=== PATIENT | male | born 1955 | race Hispanic/Latino ===

== ENCOUNTER 2020-07-31 11:17 | Emergency (ER) | payer OTHER ==
[2020-07-31 12:16] LABS: Basophils % 0.6 % (0-1.3); Hematocrit 49.5 % (39.6-49.0); Lymphocytes % 7.2 % (15.3-44.8); MPV 8.9 fL (7.6-11.3); RBC Red Blood Cell Count 5.89 M/uL (4.33-5.43)
[2020-07-31 12:17] LABS: Protime INR 1.1
[2020-07-31] MEDS ORDERED: NA CHLORIDE 0.9% 1,000 ML ONE ×2 (12:22→16:16)
[2020-07-31] MEDS ORDERED: ONDANSETRON 4 MG/2 ML VIAL ONE ×3 (12:22→20:40)
[2020-07-31] MEDS ORDERED: FAMOTIDINE 20 MG/2 ML VIAL IV ONE (12:22)
[2020-07-31] MEDS ORDERED: MORPHINE 2 MG/ML SYR ONE (12:22)
[2020-07-31 12:37] LABS: Sodium Level 138 mmol/L (136-145)
[2020-07-31 12:38] LABS: ALT/SGPT 37 U/L (12-78); AST/SGOT 26 U/L (15-37); Alkaline Phosphatase 113 U/L (45-117); BUN Blood Urea Nitrogen 19 mg/dL (7-18); Bicarbonate 26 mmol/L (21-32); Bilirubin Direct 0.3 mg/dL (0-0.2); Bilirubin Total 0.9 mg/dL (0.2-1.0); Glucose Level 128 mg/dL (74-106); Lipase 81 U/L (73-393); Magnesium 2.6 mg/dL (1.8-2.4); NT PRO-BNP 97 pg/mL (<125); Protein, Total 8.6 g/dL (6.4-8.2); Troponin (Emerg Dept Use Only) < 0.02 ng/mL (0.0-0.045)
--- NOTE | 2020-07-31 12:40 | RAD REPORT ---
EXAM DESCRIPTION: RAD - Chest Single View - 07/31/2020 12:15 pm CLINICAL HISTORY: ABDOMINAL DISTENTION COMPARISON: None TECHNIQUE: AP portable chest image was obtained 07/31/2020 12:15 pm . FINDINGS: No mass or infiltrate the lung parenchyma. No failure or volume overload. Right-sided Port -A-Cath is in place in good position. Heart and vasculature are normal. No measurable pleural effusio n and no pneumothorax. No acute bony abnormality seen. No acute aortic findings suspected. IMPRESSION: No acute cardiopulmonary process.
[2020-07-31 13:05] LABS: Blood Morphology Comment NOT SEEN (NOT SEEN); Platelet Estimate ADEQ
--- NOTE | 2020-07-31 13:55 | RAD REPORT ---
EXAM DESCRIPTION: CT - Abdomen Pelvis W Contrast - 07/31/2020 1:23 pm CLINICAL HISTORY: Abd pain;Abdominal distention, history of colon cancer COMPARISON: No comparisons TECHNIQUE: Biphasic, helical CT imaging of the abdomen and pelvis was performed following 100 ml non -ionic IV contrast. Oral contrast was given. All CT scans are performed using dose optimization technique as appropriate and may include automated exposure control or mA/KV adjustment according to patient size. FINDINGS: No suspicious findings in the lung bases. The liver, spleen, and pancreas show no suspicious findings. Gallbladder is absent. No abnormal bilia ry tree dilatation. Symmetric renal function is seen with no hydronephrosis or suspicious renal mass. No pyelonephritis o r acute parenchymal process. No bladder abnormalities. No adrenal abnormalities. No gastric wall thickening or mass. Oral CT contrast has reached the proximal jejunum. There is signi ficant dilatation of the small bowel from the ligament of Treitz to the small bowel-colon anastomosis . The patient is status post right hemicolectomy. A stricture is present at the anastomosis. The nicole ruben of the colon shows a prominent sigmoid and descending colon diverticulosis but no diverticuliti s. Adjacent to the colon-small bowel anastomosis there is a 4 centimeter lobulated cystic mass. Inferior to the mass there is a lobulated 7 x 6 centimeter cystic or low-density mass partially encircling th e mesenteric vasculature. Several small lymph nodes are present in this region. In the left lower pel vis there is a 5.5 centimeter mass showing similar imaging characteristics. No omental thickening see n. No free air, free fluid or inflammatory stranding. No suspicious bony findings. IMPRESSION: Significant small bowel obstruction is present. Small bowel is significantly dilated fro m the ligament of Treitz to the small bowel colon anastomosis where there is a tight stricture identi fiable. The patient is status post right hemicolectomy for carcinoma. Multiple 4-7 centimeter size lobulated cystic or low-density masses are present in the mesentery as d etailed. Findings are concerning for intraperitoneal recurrence of malignancy. Non colon malignant pr ocess is possible along with possible benign mesenteric cystic masses. No comparison available. There is no free air, spill of intraluminal content or other immediate surgical emergent process.
--- NOTE | 2020-07-31 14:30 | ER ---
Nurse's Notes [facility] Name: Lucas Martinez Age: 65 yrs Sex: Male : 1955 Arrival Date: 07/31/2020 Time: 11:17 Bed 15 Private MD: Diagnosis: Other intestinal obstruction-Small Bowel Obstruction;Elevated white blood cell count;Vomiting Presentation: 07/31 11:34 Chief complaint: EMS states: Patient c/o N/V/Diarrhea X 3days. Coronavirus screen: ld1 Client denies travel out of the [place] in the last 14 days. At this time, the client does not indicate any symptoms associated with coronavirus-19. Ebola Screen: No symptoms or risks identified at this time. Initial Sepsis Screen: Does the patient meet any 2 criteria? No. Patient's initial sepsis screen is negative. Does the patient have a suspected source of infection? No. Patient's initial sepsis screen is negative. Risk Assessment: Do you want to hurt yourself or someone else? Patient reports no desire to harm self or others. Onset of symptoms was July 28, 2020. Care prior to arrival: Medication(s) given: zofran 8 mg, Fentanyl 75 mcg. 11:34 Method Of Arrival: EMS: [facility] ld1 11:34 Acuity: SHERRY 3 ld1 Triage Assessment: 11:41 General: Appears in no apparent distress. comfortable, Behavior is calm, cooperative, ld1 appropriate for age. Pain: Denies pain. EENT: No signs and/or symptoms were reported regarding the EENT system. Neuro: Level of Consciousness is awake, alert, obeys commands, Oriented to person, place, time, situation, Appropriate for age. Cardiovascular: Capillary refill < 3 seconds Patient's skin is warm and dry. Respiratory: Airway is patent Respiratory effort is even, unlabored, Respiratory pattern is regular, symmetrical. GI: Abdomen is flat, non-distended. : No signs and/or symptoms were reported regarding the genitourinary system. Derm: No signs and/or symptoms reported regarding the dermatologic system. Musculoskeletal: No signs and/or symptoms reported regarding the musculoskeletal system. Historical: - Allergies: 11:40 PENICILLINS; ld1 - Home Meds: 11:40 duloxetine 60 mg oral cpDR 1 cap once daily [Active]; morphine 60 mg Oral CM24 2 caps ld1 once daily [Active]; promethazine 25 mg Oral tab [Active]; docusate sodium 100 mg Oral tab 1 tab 2 times per day [Active]; lisinopril 10 mg Oral tab 1 tab once daily [Active]; loratadine 10 mg oral tab [Active]; omeprazole 20 mg Oral cpDR 1 cap once daily [Active]; - PMHx: 17:35 Hypertension; colon cancer; aa5 - Immunization history:: Adult Immunizations up to date. - Social history:: Smoking status: unknown Patient/guardian denies using. - Family history:: not pertinent. Screenin:59 Abuse screen: Denies threats or abuse. Nutritional screening: No deficits noted. ap3 Tuberculosis screening: No symptoms or risk factors identified. Fall Risk None identified. Assessment: 11:45 Reassessment: Received report from KARLIE Richard. Patient is in bed, has handcuffs on and ap3 has officer at the bedside. Bed is locked in lowest position, side rails are up X's 2. Call light is within reach. 13:01 Reassessment: Patient and/or family updated on plan of care and expected duration. Pain ap3 level reassessed. Patient is alert, oriented x 3, equal unlabored respirations, skin warm/dry/pink. 14:30 General: NG tube inserted. Patient tolerated well. . ap3 17:15 General: bedside commode provided.. ap3 18:25 Reassessment: Shift change occurring for bedside officers. ap3 20:16 Reassessment: Received care of pt at this time. Pt informed awaiting transport. Denies ad5 questions/concerns. Pt reports improvement in s/s, states abd pain 3/10 at this time, nausea has resolved. Pt with NGT to R nare, yellow contents noted to tube, remains on intermittent suction per orders. Pt with PD at bedside. VSS at this time. Resp with ease. Skin pwd. NAD noted, will continue to monitor. 20:45 Reassessment: [facility] at bedside for transfer of pt to [facility]. Pt is A\T\O x 4, resp unlabored, NG tube in place and capped for transport, IV site intact with no erythema or edema noted. Vital Signs: 11:34 BP 147 / 104; Pulse 77; Resp 18; Temp 99.1(O); Pulse Ox 100% on R/A; Pain 5/10; ld1 12:00 BP 163 / 114; Pulse 96; Resp 19; Pulse Ox 98% ; Pain 8/10; ap3 12:59 BP 130 / 92; Pulse 95; Pulse Ox 96% ; Pain 6/10; ap3 14:00 BP 142 / 99; Pulse 94; Pulse Ox 100% ; ap3 18:00 BP 147 / 97; Pulse 89; Pulse Ox 98% ; ap3 19:30 BP 138 / 79; Pulse 76; Resp 17; Pulse Ox 98% on R/A; ad5 20:47 BP 144 / 74; Pulse 72; Resp 18; Pulse Ox 97% on R/A; bb 20:49 Temp 98.2; bb ED Course: 11:17 Patient arrived in ED. am2 11:18 Kenji Mcleod MD is Attending Physician. [facility] 11:19 Hilary Baumann, KARLIE is Primary Nurse. ld1 11:30 Maintain EMS IV. Dressing intact. Good blood return noted. Site clean \T\ dry. Gauge \T\ ap 3 site: 20g left AC. 11:37 Triage completed. ld1 11:41 Arm band placed on right wrist. ld1 12:15 XRAY Chest (1 view) In Process Unspecified. EDMS 12:59 Patient has correct armband on for positive identification. Placed in gown. Bed in low ap3 position. Call light in reach. Side rails up X2. 13:23 CT Abd/Pelvis - PO and IV Contrast In Process Unspecified. EDMS 14:14 NGT: inserted 18 Fr. via right nare. to intermittent suction. Returned gastric ap3 contents. Patient tolerated well. 16:27 initiated transfer to [facility] managed care. bd 18:01 pt accepted in transfer by dr mancilla,admin approval given by anthony at [facility]. bd 18:41 Warm blanket given. ap3 20:50 No provider procedures requiring assistance completed. Patient transferred, IV remains bb in place. Administered Medications: 12:13 Drug: Pepcid (famotidine) 20 mg Route: IVP; Site: left antecubital; ap3 18:32 Follow up: Response: No adverse reaction ap3 12:13 Drug: Zofran (Ondansetron) 4 mg Route: IVP; Site: left antecubital; ap3 18:32 Follow up: Response: No adverse reaction; Nausea is decreased ap3 12:13 Drug: morphine 2 mg Route: IVP; Site: right antecubital; ap3 18:32 Follow up: Response: No adverse reaction; Pain is decreased ap3 12:14 Drug: NS 0.9% 1000 ml Route: IV; Rate: 125 ml/hr; Site: left antecubital; ap3 18:32 Follow up: Response: No adverse reaction; IV Status: Completed infusion ap3 15:00 Drug: Cipro (ciprofloxacin) 400 mg Volume: 200 ml; Route: IVPB; Infused Over: 60 mins; ap3 Site: left antecubital; 16:06 Follow up: Response: No adverse reaction; IV Status: Completed infusion ap3 18:31 Follow up: Response: No adverse reaction; IV Status: Completed infusion ap3 20:16 Follow up: IV Status: Completed infusion; IV Intake: 200ml ad5 15:00 Drug: NS 0.9% 1000 ml Route: IV; Rate: 1 bolus; Site: left antecubital; ap3 16:05 Follow up: Response: No adverse reaction; IV Status: Completed infusion ap3 15:01 Drug: morphine 4 mg Route: IVP; Site: left antecubital; ap3 16:05 Follow up: Response: No adverse reaction; Pain is decreased; RASS: Alert and Calm (0) ap3 20:15 Follow up: Response: No adverse reaction ad5 15:01 Drug: Zofran (Ondansetron) 4 mg Route: IVP; Site: left antecubital; ap3 16:04 Follow up: Response: No adverse reaction; Nausea is decreased ap3 20:15 Follow up: Response: No adverse reaction ad5 16:05 Drug: Flagyl (metroNIDAZOLE) 500 mg Volume: 100 ml; Route: IVPB; Rate: 200 ml/hr; ap3 Infused Over: 30 mins; Site: left antecubital; 18:31 Follow up: IV Status: Completed infusion ap3 20:15 Follow up: Response: No adverse reaction; IV Status: Completed infusion; IV Intake: ad5 100ml 20:30 Drug: morphine 4 mg {Note: given by Juan José ZIEGLER RASS 0.} Route: IVP; Site: left bb antecubital; 20:30 Drug: Zofran (Ondansetron) 4 mg Route: IVP; Site: left antecubital; bb Intake: 20:15 IV: 100ml; Total: 100ml. ad5 20:16 IV: 200ml; Total: 300ml. ad5 Outcome: 14:29 ER care complete, transfer ordered by . deepti 20:50 Transferred by ground EMS to [facility], Transfer form bb completed. X-rays sent w/ patient. 20:50 Condition: stable 20:50 Instructed on the need for transfer. 20:50 Patient left the ED. bb Signatures: Dispatcher [employer] EDMS Shirley Kim Corey, MD MD cha Ballard, Brenda, RN RN bb Carole Moore RN RN [email or web address] Cheryl Negrete Amanda, RN RN ap3 Hilary Baumann RN RN ld1 Juan José Mendez ad5
--- NOTE | 2020-07-31 14:31 | EDPHYS ---
Physician Documentation [facility] Name: Lucas Martinez Age: 65 yrs Sex: Male : 1955 Arrival Date: 07/31/2020 Time: 11:17 Bed 15 Private MD: LINDSEY Physician Kenji Mcleod HPI: 07/31 14:20 This 65 yrs old Male presents to ER via EMS with complaints of ABDOMINAL PAIN, deepti VOOMITING , HX OF COLON RESECTION, CANCER. 14:20 The patient presents with abdominal pain abdominal distention in the upper abdomen, in deepti the lower abdomen. Onset: The symptoms/episode began/occurred 2 day(s) ago. The patient presents to the emergency department with nausea, vomiting, abdominal pain, of the right upper quadrant, left upper quadrant, right lower quadrant and left lower quadrant. Onset: The symptoms/episode began/occurred 2 day(s) ago. Possible causes: flare up of bowel problem, HX OF RESECTION, COLON CANCER. The symptoms are aggravated by nothing. The symptoms are alleviated by nothing. Associated signs and symptoms: The patient has no apparent associated signs or symptoms. The symptoms do not radiate. The symptoms are described as constant, crampy. Modifying factors: The symptoms are alleviated by remaining still. Historical: - Allergies: 11:40 PENICILLINS; ld1 - Home Meds: 11:40 duloxetine 60 mg oral cpDR 1 cap once daily [Active]; morphine 60 mg Oral CM24 2 caps ld1 once daily [Active]; promethazine 25 mg Oral tab [Active]; docusate sodium 100 mg Oral tab 1 tab 2 times per day [Active]; lisinopril 10 mg Oral tab 1 tab once daily [Active]; loratadine 10 mg oral tab [Active]; omeprazole 20 mg Oral cpDR 1 cap once daily [Active]; - PMHx: 17:35 Hypertension; colon cancer; aa5 - Immunization history:: Adult Immunizations up to date. - Social history:: Smoking status: unknown Patient/guardian denies using. - Family history:: not pertinent. ROS: 14:20 Constitutional: Negative for fever, chills, and weight loss, Eyes: Negative for injury, deepti pain, redness, and discharge, ENT: Negative for injury, pain, and discharge, Neck: Negative for injury, pain, and swelling, Cardiovascular: Negative for chest pain, palpitations, and edema, Respiratory: Negative for shortness of breath, cough, wheezing, and pleuritic chest pain, Back: Negative for injury and pain, : Negative for injury, bleeding, discharge, and swelling, MS/Extremity: Negative for injury and deformity, Skin: Negative for injury, rash, and discoloration, Neuro: Negative for headache, weakness, numbness, tingling, and seizure, Psych: Negative for depression, anxiety, suicide ideation, homicidal ideation, and hallucinations, Allergy/Immunology: Negative for hives, rash, and allergies, Endocrine: Negative for neck swelling, polydipsia, polyuria, polyphagia, and marked weight changes, Hematologic/Lymphatic: Negative for swollen nodes, abnormal bleeding, and unusual bruising. 14:20 Abdomen/GI: Positive for abdominal pain, nausea and vomiting, of the right upper quadrant, left upper quadrant, right lower quadrant and left lower quadrant. Exam: 14:20 Constitutional: This is a well developed, well nourished patient who is awake, alert, deepti and in no acute distress. Head/Face: Normocephalic, atraumatic. Eyes: Pupils equal round and reactive to light, extra-ocular motions intact. Lids and lashes normal. Conjunctiva and sclera are non-icteric and not injected. Cornea within normal limits. Periorbital areas with no swelling, redness, or edema. ENT: Nares patent. No nasal discharge, no septal abnormalities noted. Tympanic membranes are normal and external auditory canals are clear. Oropharynx with no redness, swelling, or masses, exudates, or evidence of obstruction, uvula midline. Mucous membranes moist. Neck: Trachea midline, no thyromegaly or masses palpated, and no cervical lymphadenopathy. Supple, full range of motion without nuchal rigidity, or vertebral point tenderness. No Meningismus. Chest/axilla: Normal chest wall appearance and motion. Nontender with no deformity. No lesions are appreciated. Cardiovascular: Regular rate and rhythm with a normal S1 and S2. No gallops, murmurs, or rubs. Normal PMI, no JVD. No pulse deficits. Respiratory: Lungs have equal breath sounds bilaterally, clear to auscultation and percussion. No rales, rhonchi or wheezes noted. No increased work of breathing, no retractions or nasal flaring. Back: No spinal tenderness. No costovertebral tenderness. Full range of motion. Male : Normal genitalia with no discharge or lesions. Skin: Warm, dry with normal turgor. Normal color with no rashes, no lesions, and no evidence of cellulitis. MS/ Extremity: Pulses equal, no cyanosis. Neurovascular intact. Full, normal range of motion. Neuro: Awake and alert, GCS 15, oriented to person, place, time, and situation. Cranial nerves II-XII grossly intact. Motor strength 5/5 in all extremities. Sensory grossly intact. Cerebellar exam normal. Normal gait. Psych: Awake, alert, with orientation to person, place and time. Behavior, mood, and affect are within normal limits. 14:20 Abdomen/GI: Inspection: distension, that is moderate, obese Bowel sounds: hyperactive, Palpation: mild abdominal tenderness, moderate abdominal tenderness, in the umbilical area, right lower quadrant and left lower quadrant, Liver: no appreciated palpable abnormalities, Hernia: not appreciated. 14:30 ECG was reviewed by the Attending Physician. [facility] Vital Signs: 11:34 BP 147 / 104; Pulse 77; Resp 18; Temp 99.1(O); Pulse Ox 100% on R/A; Pain 5/10; ld1 12:00 BP 163 / 114; Pulse 96; Resp 19; Pulse Ox 98% ; Pain 8/10; ap3 12:59 BP 130 / 92; Pulse 95; Pulse Ox 96% ; Pain 6/10; ap3 14:00 BP 142 / 99; Pulse 94; Pulse Ox 100% ; ap3 18:00 BP 147 / 97; Pulse 89; Pulse Ox 98% ; ap3 19:30 BP 138 / 79; Pulse 76; Resp 17; Pulse Ox 98% on R/A; ad5 20:47 BP 144 / 74; Pulse 72; Resp 18; Pulse Ox 97% on R/A; bb 20:49 Temp 98.2; bb MDM: 11:18 Patient medically screened. [facility] 14:24 Differential diagnosis: Nonspecific abd pain, gastritis, diverticulitis, viral deepti gastroenteritis, gastroenteritis, bowel obstruction, cholecystitis, Cholelithiasis, diverticulitis, gastritis, GI Bleed, Irritable bowel syndrome, non-specific abd pain, pancreatitis. Data reviewed: vital signs, nurses notes, lab test result(s), EKG, radiologic studies, CT scan, plain films. Data interpreted: front desk team member: rate is 93 beats/min, rhythm is regular, Pulse oximetry: on is 99 %. Test interpretation: by ED physician or midlevel provider: ECG, plain radiologic studies. Counseling: I had a detailed discussion with the patient and/or guardian regarding: the historical points, exam findings, and any diagnostic results supporting the discharge/admit diagnosis, lab results, radiology results, the need to transfer to another facility, for higher level of care, [facility] does not immediately have the required specialist, TDC Inmate. 07/31 11:31 Order name: Basic Metabolic Panel [facility] 07/31 11:31 Order name: CBC with Diff [facility] 07/31 11:31 Order name: LFT's [facility] 07/31 11:31 Order name: Magnesium; Complete Time: 13:04 [facility] 07/31 11:31 Order name: NT PRO-BNP; Complete Time: 13:04 [facility] 07/31 11:31 Order name: PT-INR; Complete Time: 13:04 [facility] 07/31 11:31 Order name: Troponin (emerg Dept Use Only); Complete Time: 13:04 [facility] 07/31 11:31 Order name: Lipase; Complete Time: 13:04 [facility] 07/31 11:32 Order name: Basic Metabolic Panel; Complete Time: 13:04 [facility] 07/31 11:32 Order name: CBC with Automated Diff; Complete Time: 14:27 [facility] 07/31 11:32 Order name: Liver (Hepatic) Function; Complete Time: 13:04 [facility] 07/31 13:05 Order name: Manual Differential [facility] 07/31 11:31 Order name: XRAY Chest (1 view); Complete Time: 13:04 [facility] 07/31 11:31 Order name: EKG; Complete Time: 11:32 [facility] 07/31 11:31 Order name: Cardiac monitoring; Complete Time: 11:47 [facility] 07/31 11:31 Order name: CT Abd/Pelvis - PO and IV Contrast; Complete Time: 14:27 [facility] 07/31 15:35 Order name: SARS-COV-2 RT PCR; Complete Time: 16:29 [facility] 07/31 11:31 Order name: EKG - Nurse/Tech; Complete Time: 11:59 [facility] 07/31 11:31 Order name: IV Saline Lock; Complete Time: 11:33 [facility] 07/31 11:31 Order name: Labs collected and sent; Complete Time: 11:59 [facility] 07/31 11:31 Order name: O2 Per Protocol; Complete Time: [facility] 07/31 11:31 Order name: O2 Sat Monitoring; Complete Time: [facility] 07/31 14:14 Order name: NG Tube: to LIS; Complete Time: 14:45 deepti EC:30 Rate is 93 beats/min. Rhythm is regular. QRS Mullan is Normal. RI interval is normal. QRS deepti interval is normal. QT interval is normal. No Q waves. T waves are Normal. No ST changes noted. Clinical impression: NSR w/ Non-specific ST/T Changes and No evidence of ischemia. Interpreted by me. Reviewed by me. Administered Medications: 12:13 Drug: Pepcid (famotidine) 20 mg Route: IVP; Site: left antecubital; ap3 18:32 Follow up: Response: No adverse reaction ap3 12:13 Drug: Zofran (Ondansetron) 4 mg Route: IVP; Site: left antecubital; ap3 18:32 Follow up: Response: No adverse reaction; Nausea is decreased ap3 12:13 Drug: morphine 2 mg Route: IVP; Site: right antecubital; ap3 18:32 Follow up: Response: No adverse reaction; Pain is decreased ap3 12:14 Drug: NS 0.9% 1000 ml Route: IV; Rate: 125 ml/hr; Site: left antecubital; ap3 18:32 Follow up: Response: No adverse reaction; IV Status: Completed infusion ap3 15:00 Drug: Cipro (ciprofloxacin) 400 mg Volume: 200 ml; Route: IVPB; Infused Over: 60 mins; ap3 Site: left antecubital; 16:06 Follow up: Response: No adverse reaction; IV Status: Completed infusion ap3 18:31 Follow up: Response: No adverse reaction; IV Status: Completed infusion ap3 20:16 Follow up: IV Status: Completed infusion; IV Intake: 200ml ad5 15:00 Drug: NS 0.9% 1000 ml Route: IV; Rate: 1 bolus; Site: left antecubital; ap3 16:05 Follow up: Response: No adverse reaction; IV Status: Completed infusion ap3 15:01 Drug: morphine 4 mg Route: IVP; Site: left antecubital; ap3 16:05 Follow up: Response: No adverse reaction; Pain is decreased; RASS: Alert and Calm (0) ap3 20:15 Follow up: Response: No adverse reaction ad5 15:01 Drug: Zofran (Ondansetron) 4 mg Route: IVP; Site: left antecubital; ap3 16:04 Follow up: Response: No adverse reaction; Nausea is decreased ap3 20:15 Follow up: Response: No adverse reaction ad5 16:05 Drug: Flagyl (metroNIDAZOLE) 500 mg Volume: 100 ml; Route: IVPB; Rate: 200 ml/hr; ap3 Infused Over: 30 mins; Site: left antecubital; 18:31 Follow up: IV Status: Completed infusion ap3 20:15 Follow up: Response: No adverse reaction; IV Status: Completed infusion; IV Intake: ad5 100ml 20:30 Drug: morphine 4 mg {Note: given by Juan José ZIEGLER RASS 0.} Route: IVP; Site: left bb antecubital; 20:30 Drug: Zofran (Ondansetron) 4 mg Route: IVP; Site: left antecubital; bb Disposition: 07/31/20 14:29 Transfer ordered to [facility]. Diagnosis are Other intestinal obstruction - Small Bowel Obstruction, Elevated white blood cell count, Vomiting. - Reason for transfer: Higher level of care. - [facility]. - Condition is Fair. - Problem is new. - Symptoms have improved. Signatures: Dispatcher [employer] EDMS Kenji Mcleod MD MD cha Ballard, Brenda RN RN bb Carole Moore RN RN aa5 Cheryl Guillermo RN RN ap3 Hilary Baumann RN RN ld1 Juan José Mendez ad5 Corrections: (The following items were deleted from the chart) 14:30 14:29 07/31/2020 14:29 Transfer ordered to [facility]. Diagnosis is Other intestinal deepti obstruction - Small Bowel Obstruction; Elevated white blood cell count. Reason for transfer: Higher level of care. Accepting physician [facility]. Condition is Fair. Problem is new. Symptoms have improved. [facility] 14:50 14:08 CORONAVIRUS+MR.LAB.BRZ ordered. EDMT EDMS 20:50 14:30 07/31/2020 14:29 Transfer ordered to [facility]. Diagnosis is Other intestinal bb obstruction - Small Bowel Obstruction; Elevated white blood cell count; Vomiting. Reason for transfer: Higher level of care. Accepting physician is to [facility]. Condition is Fair. Problem is new. Symptoms have improved. deepti
[2020-07-31] MEDS ORDERED: CIPROFLOXACIN 400mg IV 400 MG/200 ML BAG IV ONE (15:03)
[2020-07-31] MEDS ORDERED: METRONIDAZOLE 500mg IVPB 500 MG/100 ML BAG IV ONE (15:03)
[2020-07-31] MEDS ORDERED: MORPHINE 4 MG/ML SYR ONE ×2 (15:03→20:40)
[2020-07-31 21:23] VITALS: BP 144/74; O2SAT 97
[2020-07-31 21:24] VITALS: TEMP 98.2
== END 2020-07-31 20:50 | disposition short-term general hospital (02) ==
LOC: ER 11:17
DX: C18.9 Malignant neoplasm of colon, unspecified (principal); D72.829 Elevated white blood cell count, unspecified; Z90.49 Acquired absence of other specified parts of digestive tract; Z20.822 Contact with and (suspected) exposure to COVID-19; I10 Essential (primary) hypertension; Z88.0 Allergy status to penicillin
CPT/HCPCS: 85025; 80048; 36415; 83735; 85610; 80076; 84484; 83690; 83880; 74177; 71045; U0003; Q9967; J2405 ×3; 93005; 99285; J0744; J2270; J7030